=== PATIENT | female | born 1980 | race Two or more races ===

== ENCOUNTER 2017-01-11 18:05 | Emergency (ER) | payer OTHER ==
[~2017-01-11] VITALS: Ht 149.9 cm; Wt 131.5 kg
[2017-01-11 21:50] VITALS: BP 134/79
== END 2017-01-11 22:38 | disposition home or self-care (01) ==
LOC: ER 18:05
DX: S83.92XA Sprain of unspecified site of left knee, initial encounter (principal); J45.909 Unspecified asthma, uncomplicated; M79.605 Pain in left leg; E66.01 Morbid (severe) obesity due to excess calories; Z68.43 Body mass index [BMI] 50.0-59.9, adult; F17.210 Nicotine dependence, cigarettes, uncomplicated; X58.XXXA Exposure to other specified factors, initial encounter; Y93.41 Activity, dancing; Y99.8 Other external cause status; Y92.89 Other specified places as the place of occurrence of the external cause
CPT/HCPCS: 29505; 73562; 73590; 93971

== ENCOUNTER 2022-11-20 20:58 | Emergency (ER) | payer MEDICAID, OTHER ==
[~2022-11-20] VITALS: Ht 149.9 cm; Wt 131.2 kg
[2022-11-20 21:12] VITALS: BP 115/80
[2022-11-20 22:33] LABS: Basophils # (auto) 0.1 10 ^3/uL (0-0.2); Basophils % (auto) 0.9 % (0.0-2.0); Eosinophils # (auto) 0.5 10 ^3/uL (0-0.8); Eosinophils % (auto) 4.3 % (0.0-7.0); Hemoglobin 14.6 g/dL (12.2-16.2); Lymphocytes # (auto) 2.4 10 ^3/uL (0.4-5.4); Lymphocytes % (auto) 21.5 % (10.0-50.0); Mean Corpuscular Hemoglobin 30.2 pg (28.0-32.0); Mean Corpuscular Hgb Conc. 33.2 g/dL (32.0-36.0); Mean Corpuscular Volume 91.2 fL (80.0-100.0); Monocytes # (auto) 0.7 10 ^3/uL (0-1.3); Monocytes % (auto) 6.1 % (0.0-12.0); Neutrophils # (auto) 7.6 10 ^3/uL (1.6-8.6); Neutrophils % (auto) 67.2 % (37.0-80.0); Nucleated Red Blood Cells % 0.1 %; Red Blood Cells 4.82 10^6/uL (4.0-5.20); Red Cell Distribution Width 13.9 % (11.8-14.3); White Blood Cell 11.4 10^3/uL (4.4-10.8)
[2022-11-20 22:45] LABS: Albumin 3.2 g/dL (3.4-5.0); BUN/Creatinine Ratio 24.7; Calcium 9.6 mg/dL (8.5-10.1); INR 0.95 (0.9-1.15); Partial Thromboplastin Time 26.6 sec (24.6-33.4); Potassium 4.3 mmol/L (3.5-5.1)
[2022-11-20 22:48] LABS: Bilirubin, Total 0.3 mg/dL (0.2-1.0); Total Protein 7.3 g/dL (6.4-8.2)
== END 2022-11-21 08:24 | disposition home or self-care (01) ==
LOC: ER 20:58
DX: S83.8X1A Sprain of other specified parts of right knee, initial encounter (principal); E11.9 Type 2 diabetes mellitus without complications; J45.909 Unspecified asthma, uncomplicated; F17.210 Nicotine dependence, cigarettes, uncomplicated; R94.31 Abnormal electrocardiogram [ECG] [EKG]; Z98.51 Tubal ligation status; Z79.01 Long term (current) use of anticoagulants; X58.XXXA Exposure to other specified factors, initial encounter; Y93.43 Activity, gymnastics; Y92.89 Other specified places as the place of occurrence of the external cause; Y99.8 Other external cause status
CPT/HCPCS: 36415; 73562; 80053; 85025; 85610; 85730; 93005; 93971